=== PATIENT | female | born 1975 | race Two or more races ===

== ENCOUNTER → 2016-12-22 | Outpatient (CLI) | payer SELFPAY ==
--- NOTE | 2016-12-22 15:01 | RAD ---
Indication fall one day earlier. Pain. AP oblique and lateral views of the right foot were obtained. There is a nondisplaced traumatic fracture at the base of the shaft of the fourth metatarsal. This does not appear to extend to the cortex proximally. An additional bony abnormality is not seen. Soft tissue swelling is noted. IMPRESSION: Fractured fourth metatarsal
== END | disposition home or self-care (01) ==
LOC: DXRADRC 07:44
PROVIDERS: ATTEND Physician Assistant Medical
DX: S92.341A Displaced fracture of fourth metatarsal bone, right foot, initial encounter for closed fracture (principal); X58.XXXA Exposure to other specified factors, initial encounter; Y93.9 Activity, unspecified; Y92.89 Other specified places as the place of occurrence of the external cause; Y99.8 Other external cause status
CPT/HCPCS: 73630

== ENCOUNTER → 2017-02-11 | Outpatient (CLI) | payer OTHER ==
--- NOTE | 2017-02-11 15:55 | RAD ---
3 views left ankle 02/11/2017 2:00 AM Indication: ACUTE LEFT ANKLE PAIN, FALL 12/21/16 Comparison: None Findings: There is no fracture or dislocation identified. Articular surfaces are uninterrupted. Soft tissues are unremarkable. Impression: No evidence of acute osseous abnormality
== END | disposition home or self-care (01) ==
LOC: DXRADRC 15:32
PROVIDERS: ATTEND Nurse Practitioner Family
DX: M25.572 Pain in left ankle and joints of left foot (principal); R20.0 Anesthesia of skin; W19.XXXA Unspecified fall, initial encounter; Y93.89 Activity, other specified; Y92.89 Other specified places as the place of occurrence of the external cause; Y99.8 Other external cause status
CPT/HCPCS: 73610